=== PATIENT | male | born 1960 | race Caucasian/White ===

== ENCOUNTER 2021-02-25 12:15 | Emergency (ER) | payer BC, OTHER ==
[~2021-02-25] VITALS: Ht 175 cm; Wt 85.0 kg
[2021-02-25] MEDS ORDERED: LACTATED RINGERS 1,000 ML IV STA ×2 (12:35→14:32)
--- NOTE | 2021-02-25 12:50 | ED General ---
General Chief Complaint: Exposure Stated Complaint: MUSCLE CRAMPS; HEAT EXPOSURE Nursing Triage Note: PT HAS BEEN WORKING OUT IN THE HEAT ALL DAY THE LAST COUPLE DAYS AND HE STARTED HAVING CRAMPING IN ALL OF HIS EXTREMITIES. HE REPORTS HE HAS NOT DRANK MUCH WATER TODAY. Source of Information: Patient, EMS History of Present Illness Date Seen by Provider: Feb 25, 2021 Time Seen by Provider: 12:32 Initial Comments 61-year-old male presenting by EMS to have severe cramping of all 4 extremities. 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 The has not been drinking very much water especially today. He forgot to take a water check with him. He has only had a 32 ounce Gatorade that was only on his way home just prior to the cramping of his extremities. He states that he has had some mild cramping in the last 2 days but nothing like today. He was trying to drive home but when all 4 extremities started cramping s everely he felt that he cannot make it the hour to drive back to [place]. He had no nausea, vomiting, abdominal pain, diarrhea, pain with urination. He has not had urinated once today. His urine has been a lot darker in the last several days. Associated Systoms: No Chest Pain, No Cough, No Diaphoresis, No Fever/Chills, No Headaches, No Loss of Appetite, No Malaise, No Nausea/Vomiting, No Rash, No Seizure, No Shortness of Air, No Syncope, No Weakness Allergies and Home Medications Allergies Coded Allergies: No Known Drug Allergies (Unverified , 02/25/21) Patient Home Medication List Home Medication List Reviewed: Yes Review of Systems Review of Systems Constitutional: see HPI EENTM: no symptoms reported Respiratory: no symptoms reported Cardiovascular: no symptoms reported Gastrointestinal: no symptoms reported Genitourinary: decreased output Musculoskeletal: see HPI Skin: No rash Psychiatric/Neurological: No Symptoms Reported Past Ivjeazu-Ioyruq-Vzvcbx Hx Patient Social History Tobacco Use?: No Use of E-Cig and/or Vaping dev: No Substance use?: No Alcohol Use?: No Pt feels they are or have been: No Immunizations Up To Date First/Initial COVID19 Vaccinat: AUG 2020 Second COVID19 Vaccination Alberto: SEPTEMBER 2020 COVID19 Vaccine 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 oz. kg; 27.00 BMI Method: General Appearance: No Apparent Distress, WD/WN HEENT: PERRL/EOMI, Pharynx Normal Neck: Full Range of Motion, Normal Inspection, Non Tender, Supple Respiratory: Chest Non Tender, Lungs Clear, Normal Breath Sounds Cardiovascular: Regular Rate, Rhythm, Normal Peripheral Pulses Gastrointestinal: Normal Bowel Sounds, No Pulsatile Mass, Non Tender, Soft Rectal: Deferred Extremity: Normal Capillary Refill, Normal Inspection, Normal Range of Motion, No Pedal Edema Neurologic/Psychiatric: Alert, Oriented x3, kardex clerk II-XII Norm as Tested Skin: Normal Color, Warm/Dry Progress/Results/Core Measures Suspected Sepsis SIRS Temperature: Pulse: 78 Respiratory Rate: 20 Laboratory Tests 02/25/21 12:20: White Blood Count 18.1H Blood Pressure 145 /82 Mean: 103 Laboratory Tests 02/25/21 12:20: Creatinine 2.28H, Platelet Count 261, Total Bilirubin 0.6 02/25/21 14:20: Creatinine 1.62H Results/Orders Lab Results Laboratory Tests Test 02/25/21 12:20 02/25/21 13:34 02/25/21 14:20 Range/Units White Blood Count 18.1 H 4.3-11.0 10^3/uL Red Blood Count 4.68 4.35-5.85 10^6/uL Hemoglobin 14.8 13.3-17.7 G/DL Hematocrit 43 40-54 % Mean Corpuscular Volume 92 80-99 FL Mean Corpuscular Hemoglobin 32 25-34 PG Mean Corpuscular Hemoglobin Concent 34 32-36 G/DL Red Cell Distribution Width 12.3 10.0-14.5 % Platelet Count 261 130-400 10^3/uL Mean Platelet Volume 10.4 7.4-10.4 FL Immature Granulocyte % (Auto) 1 % Neutrophils (%) (Auto) 82 H 42-75 % Lymphocytes (%) (Auto) 8 L 12-44 % Monocytes (%) (Auto) 8 0-12 % Eosinophils (%) (Auto) 0 0-10 % Basophils (%) (Auto) 0 0-10 % Neutrophils # (Auto) 14.8 H 1.8-7.8 X 10^3 Lymphocytes # (Auto) 1.5 1.0-4.0 X 10^3 Monocytes # (Auto) 1.5 H 0.0-1.0 X 10^3 Eosinophils # (Auto) 0.0 0.0-0.3 10^3/uL Basophils # (Auto) 0.1 0.0-0.1 10^3/uL Immature Granulocyte # (Auto) 0.1 0.0-0.1 10^3/uL Neutrophils % (Manual) 80 % Lymphocytes % (Manual) 6 % Monocytes % (Manual) 11 % Eosinophils % (Manual) 1 % Metamyelocytes % 1 % Band Neutrophils 1 % Atypical Lymphocytes 1 % Platelet Estimate ADEQUATE Blood Morphology Comment NORMAL Sodium Level 139 135-145 MMOL/L Potassium Level 4.4 3.6-5.0 MMOL/L Chloride Level 102 98-107 MMOL/L Carbon Dioxide Level 24 21-32 MMOL/L Anion Gap 13 5-14 MMOL/L Blood Urea Nitrogen 30 H 26 H 7-18 MG/DL Creatinine 2.28 H 1.62 H 0.60-1.30 MG/DL Estimat Glomerular Filtration Rate 29 44 BUN/Creatinine Ratio 13 16 Glucose Level 152 H 70-105 MG/DL Calcium Level 9.4 8.5-10.1 MG/DL Corrected Calcium 8.5-10.1 MG/DL Magnesium Level 2.2 1.6-2.4 MG/DL Total Bilirubin 0.6 0.1-1.0 MG/DL Aspartate Amino Transf (AST/SGOT) 26 5-34 U/L Alanine Aminotransferase (ALT/SGPT) 23 0-55 U/L Alkaline Phosphatase 83 40-136 U/L Total Protein 8.1 6.4-8.2 GM/DL Albumin 4.8 H 3.2-4.5 GM/DL Urine Color YELLOW Urine Clarity SL CLOUDY Urine pH 6.0 5-9 Urine Specific [place] 1.025 H 1.016-1.022 Urine Protein 1+ H NEGATIVE Urine Glucose (UA) NEGATIVE NEGATIVE Urine Ketones NEGATIVE NEGATIVE Urine Nitrite NEGATIVE NEGATIVE Urine Bilirubin NEGATIVE NEGATIVE Urine Urobilinogen 0.2 < = 1.0 MG/DL Urine Leukocyte Esterase NEGATIVE NEGATIVE Urine RBC (Auto) NEGATIVE NEGATIVE Urine RBC RARE /HPF Urine WBC RARE /HPF Urine Squamous Epithelial Cells 0-2 /HPF Urine Crystals NONE /LPF Urine Bacteria NEGATIVE /HPF Urine Casts PRESENT /LPF Urine Hyaline Casts 25-50 H /LPF Urine Mucus MODERATE H /LPF Urine Culture Indicated NO My Orders Orders - CATARINO ALEMAN MD Comprehensive Metabolic Panel (02/25/21 12:34) Ua Culture If Indicated (02/25/21 12:34) Ed Iv/Invasive Line Start (02/25/21 12:34) Cbc With Automated Diff (02/25/21 12:34) Magnesium (02/25/21 12:34) Lactated Ringers (Lr 1000 Ml Iv Solution (02/25/21 12:35) Manual Differential (02/25/21 12:20) Bun Creatinine & Gfr (02/25/21 14:32) Lactated Ringers (Lr 1000 Ml Iv Solution (02/25/21 14:32) Vital Signs/I&O 02/25/21 02/25/21 12:42 15:32 Temp 36.4 36.4 Pulse 78 72 Resp 20 20 B/P (MAP) 145/82 (103) 122/62 (103) Pulse Ox 99 99 O2 Delivery Room Air Capillary Refill : Less Than 3 Seconds Blood Pressure Mean: 103 Progress Note #1: Progress Note Patient was already feeling better from fluids started by EMS. We will continue IV fluids here and will have her drink oral fluids. Check basic labs to ensure h julia does not have electrolyte imbalance or acute kidney injury. Continue with hydration until he can prove that he can urinate Progress Note #2: Progress Note Labs came back showing acute kidney injury with elevated BUN and creatinine. His urine showed some protein in it. He was still concentrated despite 2 L of normal saline and 1 L of lactated Ringer's. Will give additional liter of fluid and repeat the chemistry to see what his BUN/creatinine are doing to ensure that they are improving with hydration. Progress Note #3: Progress Note Creatinine came down to 1.6. Patient continues to feel improved from prior to arrival. He is drinking without difficulty. Will discharge to home however stressed importance of staying out of the heat over the weekend. Have his lab rechecked on Sunday to recheck the chemistry and the creatinine level. Be seen sooner if he has other concerns or problems Departure Impression Primary Impression: Heat cramp, initial encounter Additional Impressions: Heat fatigue, transient, initial encounter Acute renal injury due to hypovolemia Disposition: HOME, SELF-CARE Condition: Improved Departure-Patient Inst. Decision time for Depature: 15:22 Referrals: [facility] [place] Patient Instructions: Heat Illness ED, Dehydration, Adult ED, Acute Kidney Inju ry (DC) Add. Discharge Instructions: Stay well hydrated and keep drinking fluids and electrolyte drinks over the weekend. Do not work in the heat or go outside over the weekend Have your Chemisty panel and kidney function rechecked on Sunday to ensure it is continuing to improve and be seen sooner if having more problems All discharge instructions reviewed with patient and/or family. Voiced understanding. CATARINO ALEMAN MD Feb 25, 2021 12:50
[2021-02-25 12:54] LABS: HEMATOCRIT 43 % (40-54); HEMOGLOBIN 14.8 G/DL (13.3-17.7); MEAN CORPUSCULAR HEMOGLOBIN 32 PG (25-34); MEAN CORPUSCULAR HGB CONC 34 G/DL (32-36); MEAN CORPUSCULAR VOLUME 92 FL (80-99); MEAN PLATELET VOLUME 10.4 FL (7.4-10.4); PLATELET COUNT 261 10^3/uL (130-400); WHITE BLOOD COUNT 18.1 10^3/uL (4.3-11.0)
[2021-02-25 12:55] LABS: BASOPHILS # (AUTO) 0.1 10^3/uL (0.0-0.1); BASOPHILS % (AUTO) 0 % (0-10); EOSINOPHILS % (AUTO) 0 % (0-10); LYMPHOCYTES # (AUTO) 1.5 X 10^3 (1.0-4.0); LYMPHOCYTES % (AUTO) 8 % (12-44); MONOCYTES # (AUTO) 1.5 X 10^3 (0.0-1.0); MONOCYTES % (AUTO) 8 % (0-12); NEUTROPHILS # (AUTO) 14.8 X 10^3 (1.8-7.8); NEUTROPHILS % (AUTO) 82 % (42-75)
[2021-02-25 13:06] LABS: POTASSIUM 4.4 MMOL/L (3.6-5.0); SODIUM 139 MMOL/L (135-145)
[2021-02-25 13:07] LABS: BILIRUBIN,TOTAL 0.6 MG/DL (0.1-1.0); BUN/CREATININE RATIO 13; CALCIUM 9.4 MG/DL (8.5-10.1); CARBON DIOXIDE 24 MMOL/L (21-32); CHLORIDE 102 MMOL/L (98-107); CREATININE SERUM 2.28 MG/DL (0.60-1.30); GFR ESTIMATED 29; GLUCOSE 152 MG/DL (70-105); MAGNESIUM 2.2 MG/DL (1.6-2.4)
[2021-02-25 13:08] LABS: ALANINE AMINOTRANSFERASE 23 U/L (0-55); ALBUMIN 4.8 GM/DL (3.2-4.5); ALKALINE PHOSPHATASE 83 U/L (40-136); TOTAL PROTEIN 8.1 GM/DL (6.4-8.2)
[2021-02-25 13:18] LABS: BAND NEUTROPHILS 1 %; LYMPHOCYTES % (MANUAL) 6 %; MONOCYTES % (MANUAL) 11 %; NEUTROPHILS % (MANUAL) 80 %
[2021-02-25 13:19] LABS: ATYPICAL LYMPHOCYTES 1 %; EOSINOPHILS % (MANUAL) 1 %; METAMYELOCYTES % 1 %; PLATELET ESTIMATE ADEQUATE; RBC MORPH NORMAL
[2021-02-25 13:41] LABS: BILIRUBIN,URINE NEGATIVE (NEGATIVE); CLARITY,URINE SL CLOUDY; COLOR,URINE YELLOW; GLUCOSE, URINE (UA) NEGATIVE (NEGATIVE); KETONES,URINE NEGATIVE (NEGATIVE); LEUKOCYTE ESTERASE ,URINE NEGATIVE (NEGATIVE); NITRITE,URINE NEGATIVE (NEGATIVE); PROTEIN,URINE 1+ (NEGATIVE)
[2021-02-25 14:07] LABS: BACTERIA,URINE NEGATIVE /HPF; HYALINE CASTS, URINE 25-50 /LPF; RBC,URINE RARE /HPF; SQUAMOUS EPITHELIAL CELL,UR 0-2 /HPF; WBC,URINE RARE /HPF
[2021-02-25 15:14] LABS: CREATININE SERUM 1.62 MG/DL (0.60-1.30)
[2021-02-25 15:32] VITALS: BP 122/62
== END 2021-02-25 15:33 | disposition home or self-care (01) ==
LOC: EDUNIT# 12:28 → ER FS 12:31
DX: T67.2XXA Heat cramp, initial encounter (principal); T67.6XXA Heat fatigue, transient, initial encounter; N17.8 Other acute kidney failure; I10 Essential (primary) hypertension
CPT/HCPCS: 36415; 80053; 81000; 82565; 83735; 84520; 85007; 85027